=== PATIENT | male | born 1985 | race Caucasian/White ===

== ENCOUNTER 2018-06-02 20:42 | Emergency (ER) | payer BC ==
[2018-06-02 20:58] VITALS: BP 112/70
--- NOTE | 2018-06-02 21:07 | ED ---
Lower Extremity - HPI Summary HPI Summary: 32-year-old male presents with right pinky toe injury. He states he dropped a fryer on it. He states he still able to ambulate. He has pain only in his right big toe. No numbness or tingling. No ankle pain. No other injury. - History of Current Complaint Chief Complaint: UCLowerExtremity Stated Complaint: FOOT INJURY Time Seen by Provider: 06/02/18 21:00 Pain Intensity: 2 - Allergies/Home Medications Allergies/Adverse Reactions: Allergies Allergy/AdvReac Type Severity Reaction Status Date / Time No Known Allergies Allergy Verified 06/02/18 20:57 Home Medications: Home Medications Buprenorphine HCl/Naloxone HCl [Zubsolv 0.7-0.18 mg Tablet Sl] 1 each SL QID [History Confirmed 06/02/18] Omeprazole 20 mg PO DAILY 06/02/18 [History Confirmed 06/02/18] celeCOXIB CAP* [CeleBREX CAP*] 200 mg PO DAILY 06/02/18 [History Confirmed 06/02] PMH/Surg Hx/FS Hx/Imm Hx Endocrine/Hematology History: Denies: Hx Anticoagulant Therapy Respiratory History: Denies: Hx Asthma Infectious Disease History: No Infectious Disease History: Denies: Traveled Outside the [place] in Last 30 Days - Family History Known Family History: Positive: Non-Contributory - Social History Alcohol Use: None Substance Use Type: Reports: None Smoking Status (MU): Never Smoked Tobacco Review of Systems Negative: Fever Negative: Chest Pain Negative: Shortness Of Breath Positive: Myalgia - right foot injury All Other Systems Reviewed And Are Negative: Yes Physical Exam Triage Information Reviewed: Yes Vital Signs On Initial Exam: Initial Vitals Temp Pulse Resp BP Pulse Ox 99.0 F 83 18 112/70 98 06/02/18 20:55 06/02/18 20:55 06/02/18 20:55 06/02/18 20:55 06/02/18 20:55 Vital Signs Reviewed: Yes Appearance: Positive: Well-Appearing Skin: Positive: Warm, Dry Head/Face: Positive: Normal Head/Face Inspection Eyes: Positive: Normal, Conjunctiva Clear ENT: Positive: Pharynx normal Respiratory/Lung Sounds: Positive: Clear to Auscultation, Breath Sounds Present Cardiovascular: Positive: Normal, RRR Musculoskeletal: Positive: Edema Right - right big toe, Other - tenderness right big toe, capillary refill<2 secs Neurological: Positive: Normal Psychiatric: Positive: Normal Diagnostics - Vital Signs Vital Signs Temp Pulse Resp BP Pulse Ox 06/02/18 20:55 99.0 F 83 18 112/70 98 - Laboratory Lab Statement: Any lab studies that have been ordered have been reviewed, and results considered in the medical decision making process. - Radiology toe Radiology Interpretation Completed By: ED Physician Summary of Radiographic Findings: possible avulsion fracture great toe Lower Extremity Course/Dx - Course Course Of Treatment: 32-year-old male presents with right pinky toe injury. He states he dropped a fryer on it. He states he still able to ambulate. He has pain only in his right big toe. No numbness or tingling. No ankle pain. No other injury. On exam tenderness over the great toe. Neurovascular intact. X- ray shows possible distal phalanx fracture. told to pasha tape area. told ice and elevate. gave referral ortho if no improvement. patient understand and agrees with plan. - Diagnoses Differential Diagnosis/HQI/PQRI: Positive: Contusion, Fracture (Closed), Sprain Provider Diagnoses: Injury of right toe Discharge - Sign-Out/Discharge Documenting (check all that apply): Patient Departure All imaging exams completed and their final reports reviewed: No - Discharge Plan Condition: Good Disposition: HOME Patient Education Materials: Foot Contusion (ED) Referrals: [facility] [place] [facility] REFERRAL [Outside] Claudia Neville MD [Medical Doctor] - Additional Instructions: pasha tape toes Take Tylenol or ibuprofen every 6 hours as needed for pain Apply ice, elevate establish care with primary care referral was given for ortho if no improvement in a week Return to ED if develop any new or worsening symptoms - Billing Disposition and Condition Condition: GOOD Disposition: Home - Attestation Statements Provider Attestation: I did not examine this patient. I was available for consult.
== END 2018-06-02 21:45 | disposition home or self-care (01) ==
LOC: UCEAST 20:42
DX: S99.921A Unspecified injury of right foot, initial encounter (principal); W20.8XXA Other cause of strike by thrown, projected or falling object, initial encounter; Y92.9 Unspecified place or not applicable
CPT/HCPCS: 99201; G0463